=== PATIENT | male | born 1970 | race Two or more races ===

== ENCOUNTER 2021-03-17 08:08 | Day surgery (SDC) | payer OTHER ==
[2021-03-17] MEDS ORDERED: PERCOCET 5-3251 EACH PO (11:30)
== END 2021-03-17 18:00 | disposition home or self-care (01) ==
LOC: CIR.AMB 08:08
PROVIDERS: ATTEND Surgery
DX: K64.8 Other hemorrhoids (principal); Z20.822 Contact with and (suspected) exposure to COVID-19

== ENCOUNTER 2021-03-24 06:44 | Emergency (ER) | payer OTHER ==
[~2021-03-24] VITALS: Ht 154.9 cm; Wt 65.8 kg
[~2021-03-24 06:44] MED LIST: PERCOCET 5-3251 EACH PO
[2021-03-24] MEDS ORDERED: TAMS0.4C PO (10:33)
== END 2021-03-24 10:41 | disposition home or self-care (01) ==
LOC: ER 06:44
DX: N13.9 Obstructive and reflux uropathy, unspecified (principal)

== ENCOUNTER 2021-03-28 09:57 | Emergency (ER) | payer OTHER ==
[~2021-03-28] VITALS: Ht 162.6 cm; Wt 83.0 kg
[~2021-03-28 09:57] MED LIST changes: +TAMS0.4C PO
== END 2021-03-28 11:14 | disposition home or self-care (01) ==
LOC: ER 09:57
DX: R33.9 Retention of urine, unspecified (principal)

== ENCOUNTER 2021-03-29 16:15 | Inpatient (IN) | payer OTHER ==
[~2021-03-29] VITALS: Ht 162.6 cm; Wt 83.0 kg
[2021-04-01] MEDS ORDERED: AMOX-CLAV 875-1 EACH PO (11:12)
[2021-04-01] MEDS ORDERED: KETO10TA2 PO (11:13)
== END 2021-04-01 13:38 | disposition home or self-care (01) | DRG 348 ==
LOC: ER 16:15 → SURH 16:49 → SEC-K 16:49 → SURH 19:20
PROVIDERS: ADMIT Surgery; ATTEND Surgery
PROC: 0D9Q7ZZ Drainage of Anus, Via Natural or Artificial Opening (ICD-10-PCS; principal; 2021-03-29)
DX: K61.0 Anal abscess (principal); N13.8 Other obstructive and reflux uropathy; R33.9 Retention of urine, unspecified

== ENCOUNTER 2021-05-18 14:05 | Inpatient (IN) | payer OTHER ==
[~2021-05-18] VITALS: Ht 162.6 cm; Wt 81.6 kg
[~2021-05-18 14:05] MED LIST changes: +AMOX-CLAV 875-1 EACH PO; +KETO10TA2 PO
== END 2021-05-20 11:24 | disposition home or self-care (01) | DRG 349 ==
LOC: ER 14:05 → SURH 17:35
PROVIDERS: ADMIT Surgery; ATTEND Surgery
PROC: BR2CYZZ Computerized Tomography (CT Scan) of Pelvis using Other Contrast (ICD-10-PCS; 2021-05-19)
PROC: 0DBQ7ZZ Excision of Anus, Via Natural or Artificial Opening (ICD-10-PCS; principal; 2021-05-19 14:45)
DX: K60.3 Anal fistula (principal); K62.89 Other specified diseases of anus and rectum; K64.2 Third degree hemorrhoids; Z20.822 Contact with and (suspected) exposure to COVID-19

== ENCOUNTER 2021-06-23 06:57 | Day surgery (SDC) | payer OTHER ==
[2021-06-23] MEDS ORDERED: OMEPRAZOLE20 MG PO (14:05)
[2021-06-23] MEDS ORDERED: KETO10TA2 PO (14:05)
[2021-06-23] MEDS ORDERED: COLACE100 MG PO (14:05)
[2021-06-23] MEDS ORDERED: PERCOCET 5-3251 EACH PO (14:05)
== END 2021-06-23 19:20 | disposition home or self-care (01) ==
LOC: CIR.AMB 06:57
PROVIDERS: ATTEND Surgery
DX: K60.3 Anal fistula (principal)